=== PATIENT | female | born 1970 | race Caucasian/White ===

== ENCOUNTER 2019-03-19 08:52 | Emergency (ER) | payer MEDICAID ==
[~2019-03-19] VITALS: Ht 172.7 cm; Wt 68.0 kg
[~2019-03-19 08:52] MED LIST: ALBU8HFA IH; CLON-527 PO; CYCL-394 PO; FLUT16SP13 NAS; HYDR1TAB PO; IBUP-1984 PO; MIN5C PO; OLAN10TA19 PO; OMEP-84 PO; RISP1TAB13 PO; SERT25TA PO; ZOLP10TA5 PO
[2019-03-19 08:54] VITALS: BP 135/78
== END 2019-03-19 12:07 | disposition home or self-care (01) ==
LOC: ER 08:52
DX: F15.10 Other stimulant abuse, uncomplicated (principal); F10.10 Alcohol abuse, uncomplicated; F31.9 Bipolar disorder, unspecified; F17.200 Nicotine dependence, unspecified, uncomplicated; F12.90 Cannabis use, unspecified, uncomplicated; Z59.0 Homelessness; Z88.2 Allergy status to sulfonamides; Z79.899 Other long term (current) drug therapy; Z56.0 Unemployment, unspecified
CPT/HCPCS: 99281

== ENCOUNTER 2019-04-12 08:03 | Emergency (ER) | payer MEDICAID ==
[~2019-04-12] VITALS: Ht 172.7 cm; Wt 75.0 kg
[2019-04-12] MEDS ORDERED: normal saline 1000ML IV soln IVB ONE (08:15)
[2019-04-12] MEDS ORDERED: ondansetron/PF 4mg/2ml inj IV ONE (08:15)
[2019-04-12 08:31] LABS: BASOPHILS % (AUTO) 0.6 % (0-1); EOSINOPHILS # (AUTO) 0.1 X10'3 (0-0.9); EOSINOPHILS % (AUTO) 1.3 % (0-6); HEMATOCRIT 42.3 % (35.0-45.0); HEMOGLOBIN 14.2 g/dl (12.0-16.0); LYMPHOCYTES # (AUTO) 1.6 X10'3 (1.1-4.8); LYMPHOCYTES % (AUTO) 19.6 % (21-51); MEAN CORPUSCULAR HGB CONC 33.6 g/dL (33.0-36.5); MEAN CORPUSCULAR VOLUME 92.1 FL (78-98); MEAN PLATELET VOLUME 6.4 FL (7.4-10.4); MONOCYTES # (AUTO) 0.7 X10'3 (0-0.9); MONOCYTES % (AUTO) 8.3 % (2-12); NEUTROPHILS # (AUTO) 5.9 X10'3 (1.8-7.7); NEUTROPHILS % (AUTO) 70.2 % (42-75); PLATELET COUNT 458 X10'3 (140-440); RED CELL DISTRIBUTION WIDTH 15.3 % (11.5-14.5); WHITE BLOOD COUNT 8.4 X10'3 (4.5-11.0)
[2019-04-12 08:42] LABS: ALANINE AMINOTRANSFERASE 21 U/L (12-78); ALBUMIN 3.4 G/DL (3.4-5.0); ALBUMIN/GLOBULIN RATIO 0.9 (1.1-1.5); ALKALINE PHOSPHATASE 84 IU/L (46-116); ANION GAP 4 (8-16); ASPARTATE AMINO TRANSFERASE 15 U/L (10-37); BILIRUBIN,TOTAL 0.4 MG/DL (0.1-1.0); BLOOD UREA NITROGEN 10 MG/DL (7-18); BUN/CREATININE RATIO 17.2 (6.6-38.0); CALCIUM 8.7 MG/DL (8.5-10.1); CHLORIDE 103 MMOL/L (99-107); CREATININE 0.58 MG/DL (0.40-0.90); GLUCOSE 104 MG/DL (70-104); LIPASE 82 U/L (73-393); POTASSIUM 3.9 MMOL/L (3.5-5.1); SODIUM 135 MMOL/L (135-145); TOTAL CARBON DIOXIDE 27.7 MMOL/L (24-32); TOTAL PROTEIN 7.2 G/DL (6.4-8.2); eGFR > 90 ML/MIN
[2019-04-12 09:34] LABS: URINE HCG NEGATIVE (NEG)
[2019-04-12 09:49] LABS: CLARITY,URINE CLEAR (Clear); COLOR,URINE YELLOW (Yellow); GLUCOSE, URINE NEGATIVE (Neg); KETONES,URINE NEGATIVE (Neg); LEUKOCYTE ESTERASE ,URINE NEGATIVE (Neg); NITRITES, URINE NEGATIVE (Neg); OCCULT BLOOD,URINE NEGATIVE (Neg); PH,URINE 7.5 (4.8-8.0); PROTEIN,URINE NEGATIVE (Neg); UROBILINOGEN,URINE 0.2 E.U/dL (0.2-1.0)
[2019-04-12 09:50] LABS: UA COLLECTION TYPE CLN CATCH MIDSTREAM
[2019-04-12 10:13] VITALS: BP 116/76
== END 2019-04-12 10:13 | disposition home or self-care (01) ==
LOC: ER 08:04
DX: R10.11 Right upper quadrant pain (principal); F12.90 Cannabis use, unspecified, uncomplicated; F15.90 Other stimulant use, unspecified, uncomplicated; Z59.0 Homelessness; Z56.0 Unemployment, unspecified; Z88.2 Allergy status to sulfonamides; Z79.899 Other long term (current) drug therapy
CPT/HCPCS: 36415; 76700; 80053; 81003; 81025; 83690; 85025; 96374; 99284; J2405; J7030

== ENCOUNTER 2023-04-12 23:58 | Emergency (ER) | payer MEDICAID ==
[~2023-04-12] VITALS: Ht 170.2 cm; Wt 85.0 kg
[~2023-04-12 23:58] MED LIST changes: -ALBU8HFA IH; -CLON-527 PO; -CYCL-394 PO; -FLUT16SP13 NAS; -HYDR1TAB PO; -IBUP-1984 PO; -MIN5C PO; +NO HOME MEDS; -OLAN10TA19 PO; -OMEP-84 PO; -RISP1TAB13 PO; -SERT25TA PO; -ZOLP10TA5 PO
[2023-04-13 00:56] LABS: URINE HCG NEGATIVE (NEG)
[2023-04-13 01:05] LABS: ANION GAP 6 (8-16); BILIRUBIN,TOTAL 0.3 MG/DL (0.1-1.0); BLOOD UREA NITROGEN 12 MG/DL (7-18); BUN/CREATININE RATIO 18.8 (10.0-20.0); CALCIUM 9.4 MG/DL (8.5-10.1); CHLORIDE 103 MMOL/L (99-107); CREATININE 0.64 MG/DL (0.40-0.90); GLUCOSE 94 MG/DL (70-104); POTASSIUM 3.3 MMOL/L (3.5-5.1); SODIUM 138 MMOL/L (135-145); TOTAL PROTEIN 7.7 G/DL (6.4-8.2); eGFR > 90 ML/MIN
[2023-04-13 01:06] LABS: ALANINE AMINOTRANSFERASE 37 U/L (12-78); ALBUMIN/GLOBULIN RATIO 1.1 (1.1-1.5); ALKALINE PHOSPHATASE 107 IU/L (46-116); ASPARTATE AMINO TRANSFERASE 21 U/L (10-37); ETHANOL < 0.010 GM/DL (0.0-0.010)
[2023-04-13 01:08] LABS: BASOPHILS # (AUTO) 0.1 X10'3 (0-0.2); BASOPHILS % (AUTO) 0.7 % (0-1); EOSINOPHILS # (AUTO) 0.1 X10'3 (0-0.9); EOSINOPHILS % (AUTO) 1.2 % (0-6); HEMATOCRIT 40.1 % (35.0-45.0); HEMOGLOBIN 13.5 g/dl (12.0-16.0); LYMPHOCYTES # (AUTO) 2.3 X10'3 (1.1-4.8); LYMPHOCYTES % (AUTO) 31.9 % (21-51); MEAN CORPUSCULAR HEMOGLOBIN 32.3 PG (27.0-31.0); MEAN CORPUSCULAR HGB CONC 33.8 g/dL (33.0-36.5); MEAN CORPUSCULAR VOLUME 95.6 FL (78-98); MEAN PLATELET VOLUME 7.1 FL (7.4-10.4); MONOCYTES # (AUTO) 0.9 X10'3 (0-0.9); MONOCYTES % (AUTO) 11.6 % (2-12); NEUTROPHILS % (AUTO) 54.6 % (42-75); PLATELET COUNT 440 X10'3 (140-440); RED BLOOD COUNT 4.19 X10'6 (4.20-5.60); RED CELL DISTRIBUTION WIDTH 15.6 % (11.5-14.5); WHITE BLOOD COUNT 7.3 X10'3 (4.5-11.0)
[2023-04-13 01:29] LABS: URINE AMPHETAMINE SCREEN NEGATIVE (Neg); URINE BARBITUATE SCREEN NEGATIVE (Neg); URINE BENZODIAZEPINES SCREEN NEGATIVE (Neg); URINE CANNABINOID SCREEN POSITIVE (Neg); URINE COCAINE SCREEN NEGATIVE (Neg); URINE METHADONE SCREEN NEGATIVE (Neg); URINE OPIATE SCREEN NEGATIVE (Neg); URINE PHENCYCLIDINE SCREEN NEGATIVE (Neg)
[2023-04-13] MEDS ORDERED: Melatonin 3mg tablet PO SCH (01:35)
[2023-04-13] MEDS ORDERED: OLANZapine 5mg rapidly disint. tablet PO ONE (01:35)
[2023-04-13] MEDS ORDERED: ibuprofen 200mg tablet PO ONE (03:05)
--- NOTE | 2023-04-13 06:45 | NUR ---
ASSUMED CARE FOR THE PT ,TAKEN REPORT FROM NEGRO ZAZUETA.
--- NOTE | 2023-04-13 06:58 | NUR ---
pt sleeping in lft lateral position ,RR WNL ,will cont to monitor .
[2023-04-13 07:34] VITALS: BP 125/78
--- NOTE | 2023-04-13 08:15 | NUR ---
pt up in bed using restroom at this time ,will cont to monitor .
--- NOTE | 2023-04-13 08:20 | NUR ---
pt eating her breakfast .
--- NOTE | 2023-04-13 08:59 | NUR ---
pt laying on her rgt side ,no distress noted,RR WNL will cont to monitor.
--- NOTE | 2023-04-13 09:20 | NUR ---
PT SLEEPING IN SUPINE POSITION ,NO DISTRESS NOTED.WILL CONT TO MONITOR.RR WNL.
--- NOTE | 2023-04-13 11:55 | NUR ---
PT SLEEPING AT THIS TIME ,RR WNL ,WILL CONT TO MONITOR .
--- NOTE | 2023-04-13 12:37 | NUR ---
PT UP TO BR VOIDED X1, TOLERATED WELL. BACK TO ROOM EATING LUNCH WITH GOOD APPETITE.
--- NOTE | 2023-04-13 13:13 | NUR ---
pt resting in bed at this time ,appear sleeping ,RR WNL,will con to monitor .phone kept outside the room as pt want to talk to someone .will not disturb the pt ,will give phome when pt is awake.
--- NOTE | 2023-04-13 15:37 | NUR ---
RASHID FROM [facility][1] HERE EVALUATING PT.
== END 2023-04-13 16:30 | disposition home or self-care (01) ==
LOC: ER 23:59
DX: R45.851 Suicidal ideations (principal); F99 Mental disorder, not otherwise specified; G43.909 Migraine, unspecified, not intractable, without status migrainosus; G89.29 Other chronic pain; F12.90 Cannabis use, unspecified, uncomplicated; F19.90 Other psychoactive substance use, unspecified, uncomplicated; Z91.51 Personal history of suicidal behavior; Z72.89 Other problems related to lifestyle; Z59.00 Homelessness unspecified; Z56.0 Unemployment, unspecified
CPT/HCPCS: 36415; 80053; 80305; 80320; 81025; 85025; 99285

== ENCOUNTER 2023-04-16 07:35 | Emergency (ER) | payer MEDICAID ==
[~2023-04-16] VITALS: Ht 170.2 cm; Wt 84.2 kg
[2023-04-16 08:07] VITALS: BP 127/78
[2023-04-16 08:54] LABS: BASOPHILS % (AUTO) 0.4 % (0-1); EOSINOPHILS # (AUTO) 0.1 X10'3 (0-0.9); EOSINOPHILS % (AUTO) 0.8 % (0-6); HEMATOCRIT 41.5 % (35.0-45.0); LYMPHOCYTES # (AUTO) 1.6 X10'3 (1.1-4.8); LYMPHOCYTES % (AUTO) 17.2 % (21-51); MEAN CORPUSCULAR HGB CONC 33.8 g/dL (33.0-36.5); MEAN CORPUSCULAR VOLUME 94.8 FL (78-98); MEAN PLATELET VOLUME 6.7 FL (7.4-10.4); MONOCYTES # (AUTO) 1.3 X10'3 (0-0.9); MONOCYTES % (AUTO) 13.8 % (2-12); NEUTROPHILS # (AUTO) 6.2 X10'3 (1.8-7.7); NEUTROPHILS % (AUTO) 67.8 % (42-75); PLATELET COUNT 386 X10'3 (140-440); RED BLOOD COUNT 4.37 X10'6 (4.20-5.60); RED CELL DISTRIBUTION WIDTH 15.2 % (11.5-14.5); WHITE BLOOD COUNT 9.2 X10'3 (4.5-11.0)
[2023-04-16 08:56] LABS: CLARITY,URINE CLEAR (Clear); COLOR,URINE STRAW (Yellow); GLUCOSE, URINE NEGATIVE (Neg); KETONES,URINE NEGATIVE (Neg); LEUKOCYTE ESTERASE ,URINE NEGATIVE (Neg); NITRITES, URINE NEGATIVE (Neg); OCCULT BLOOD,URINE NEGATIVE (Neg); PROTEIN,URINE NEGATIVE (Neg); UROBILINOGEN,URINE 0.2 E.U/dL (0.2-1.0)
[2023-04-16 08:57] LABS: URINE HCG NEGATIVE (NEG)
[2023-04-16 08:58] LABS: UA COLLECTION TYPE CLN CATCH MIDSTREAM
[2023-04-16 09:08] LABS: ALANINE AMINOTRANSFERASE 30 U/L (12-78); ALBUMIN 3.6 G/DL (3.4-5.0); ALKALINE PHOSPHATASE 101 IU/L (46-116); ANION GAP 5 (8-16); ASPARTATE AMINO TRANSFERASE 14 U/L (10-37); BILIRUBIN,TOTAL 0.8 MG/DL (0.1-1.0); BLOOD UREA NITROGEN 8 MG/DL (7-18); BUN/CREATININE RATIO 13.1 (10.0-20.0); CALCIUM 8.9 MG/DL (8.5-10.1); CHLORIDE 103 MMOL/L (99-107); CREATININE 0.61 MG/DL (0.40-0.90); GLUCOSE 95 MG/DL (70-104); POTASSIUM 3.6 MMOL/L (3.5-5.1); SODIUM 137 MMOL/L (135-145); TOTAL CARBON DIOXIDE 28.8 MMOL/L (24-32); TOTAL PROTEIN 7.3 G/DL (6.4-8.2); eGFR > 90 ML/MIN
[2023-04-16 09:09] LABS: URINE AMPHETAMINE SCREEN POSITIVE (Neg); URINE BARBITUATE SCREEN NEGATIVE (Neg); URINE BENZODIAZEPINES SCREEN NEGATIVE (Neg); URINE CANNABINOID SCREEN POSITIVE (Neg); URINE COCAINE SCREEN NEGATIVE (Neg); URINE METHADONE SCREEN NEGATIVE (Neg); URINE OPIATE SCREEN NEGATIVE (Neg); URINE PHENCYCLIDINE SCREEN NEGATIVE (Neg)
[2023-04-16 09:30] LABS: ETHANOL < 0.010 GM/DL (0.0-0.010)
[2023-04-16] MEDS ORDERED: IBUP-1985 PO (09:52)
== END 2023-04-16 10:47 | disposition home or self-care (01) ==
LOC: ER 07:35
DX: F12.10 Cannabis abuse, uncomplicated (principal); F19.10 Other psychoactive substance abuse, uncomplicated; M79.661 Pain in right lower leg; G43.909 Migraine, unspecified, not intractable, without status migrainosus; G89.29 Other chronic pain; F41.9 Anxiety disorder, unspecified; F31.9 Bipolar disorder, unspecified; F15.90 Other stimulant use, unspecified, uncomplicated; Z59.00 Homelessness unspecified; Z56.0 Unemployment, unspecified; Z88.2 Allergy status to sulfonamides; Z79.899 Other long term (current) drug therapy
CPT/HCPCS: 36415; 80053; 80305; 80320; 81003; 81025; 84443; 85025; 99283

== ENCOUNTER 2023-05-07 08:49 | Emergency (ER) | payer MEDICAID ==
[~2023-05-07] VITALS: Ht 175.3 cm; Wt 77.7 kg
[~2023-05-07 08:49] MED LIST changes: +IBUP-1985 PO
[2023-05-07] MEDS ORDERED: GABA300C PO (10:50)
[2023-05-07] MEDS ORDERED: ESCI20TA PO (10:50)
[2023-05-07] MEDS ORDERED: OLAN10TA3 PO (10:50)
[2023-05-07 11:12] VITALS: BP 149/87
== END 2023-05-07 11:13 | disposition home or self-care (01) ==
LOC: ER 08:50
DX: F41.9 Anxiety disorder, unspecified (principal); M25.571 Pain in right ankle and joints of right foot; G62.9 Polyneuropathy, unspecified; G43.909 Migraine, unspecified, not intractable, without status migrainosus; G89.29 Other chronic pain; F31.9 Bipolar disorder, unspecified; F17.210 Nicotine dependence, cigarettes, uncomplicated; F12.90 Cannabis use, unspecified, uncomplicated; Z56.0 Unemployment, unspecified; Z59.00 Homelessness unspecified; Z72.89 Other problems related to lifestyle; Z88.2 Allergy status to sulfonamides; Z79.899 Other long term (current) drug therapy
CPT/HCPCS: 99283

== ENCOUNTER 2023-05-27 13:57 | Emergency (ER) | payer MEDICAID ==
[~2023-05-27] VITALS: Ht 172.1 cm; Wt 81.8 kg
[~2023-05-27 13:57] MED LIST changes: +ESCI20TA PO; +GABA300C PO; +OLAN10TA3 PO
[2023-05-27 14:20] VITALS: BP 128/60
--- NOTE | 2023-05-27 14:25 | NUR ---
PADMA RAIL TRANSIT OPERATOR UPDATED ON PATIENTS STATEMENTS.
--- NOTE | 2023-05-27 14:31 | NUR ---
PATIENT WAS NOT IN LOBBY WHEN IT WAS HER TIME TO BE ROOMED
== END 2023-05-27 15:17 | disposition left against medical advice (07) ==
LOC: ER 13:58
DX: R22.43 Localized swelling, mass and lump, lower limb, bilateral (principal); Z53.21 Procedure and treatment not carried out due to patient leaving prior to being seen by health care provider
CPT/HCPCS: 99281

== ENCOUNTER 2023-06-01 21:40 | Emergency (ER) | payer MEDICAID ==
[~2023-06-01] VITALS: Ht 170.2 cm; Wt 82.0 kg
[2023-06-01 21:45] VITALS: BP 120/83
[2023-06-01] MEDS ORDERED: FURO-150 PO (22:45)
[2023-06-01] MEDS ORDERED: ibuprofen tablet 400 MG TABLET PO ONE (22:50)
--- NOTE | 2023-06-01 22:57 | NUR ---
PT NOT IN LOBBY
== END 2023-06-01 23:24 | disposition home or self-care (01) ==
LOC: ER 21:43
DX: Z76.0 Encounter for issue of repeat prescription (principal); M25.579 Pain in unspecified ankle and joints of unspecified foot; M25.473 Effusion, unspecified ankle; G43.909 Migraine, unspecified, not intractable, without status migrainosus; F31.9 Bipolar disorder, unspecified; F12.90 Cannabis use, unspecified, uncomplicated; F15.90 Other stimulant use, unspecified, uncomplicated; Z88.2 Allergy status to sulfonamides
CPT/HCPCS: 99282

== ENCOUNTER 2023-06-14 21:48 | Emergency (ER) | payer MEDICAID ==
[~2023-06-14 21:48] MED LIST changes: +FURO-150 PO
[2023-06-15] MEDS ORDERED: SUMA25TA35 PO (03:09)
[2023-06-15] MEDS ORDERED: FURO-150 PO (03:09)
[2023-06-15] MEDS ORDERED: BACL-11 PO (03:09)
== END 2023-06-14 22:39 | disposition left against medical advice (07) ==
LOC: ER 21:49
DX: M79.89 Other specified soft tissue disorders (principal); Z53.21 Procedure and treatment not carried out due to patient leaving prior to being seen by health care provider

== ENCOUNTER 2023-06-15 00:01 | Emergency (ER) | payer MEDICAID ==
[~2023-06-15] VITALS: Ht 172.1 cm; Wt 75.2 kg
[2023-06-15 00:22] VITALS: BP 105/73; PULSE 103; RESP 18; O2SAT 98
[2023-06-15] MEDS ORDERED: cyclobenzaprine 10mg tablet PO ONE (02:45)
[2023-06-15] MEDS ORDERED: furosemide 20MG tablet PO ONE (02:45)
[2023-06-15] MEDS ORDERED: ibuprofen tablet 400 MG TABLET PO ONE (02:45)
[2023-06-15] MEDS ORDERED: SUMAtriptan 25 MG tablet PO ONE (02:45)
[2023-06-15] MEDS ORDERED: ketorolac trometh inj. 60 MG/2 ML VIAL IM ONE (03:00)
[2023-06-15] MEDS ORDERED: SUMA25TA35 PO (03:09)
[2023-06-15] MEDS ORDERED: BACL-11 PO (03:09)
[2023-06-15] MEDS ORDERED: FURO-150 PO (03:09)
[2023-06-15 03:54] VITALS: TEMP 99
== END 2023-06-15 03:59 | disposition home or self-care (01) ==
LOC: ER 00:02
DX: R60.9 Edema, unspecified (principal); G43.909 Migraine, unspecified, not intractable, without status migrainosus; M54.9 Dorsalgia, unspecified; G89.29 Other chronic pain; F17.200 Nicotine dependence, unspecified, uncomplicated; Z76.0 Encounter for issue of repeat prescription; Z59.00 Homelessness unspecified; Z56.0 Unemployment, unspecified; Z88.2 Allergy status to sulfonamides; Z79.899 Other long term (current) drug therapy
CPT/HCPCS: 96372; 99284; J1885

== ENCOUNTER 2023-06-16 01:06 | Emergency (ER) | payer MEDICAID ==
[~2023-06-16] VITALS: Ht 170.2 cm; Wt 75.0 kg
[~2023-06-16 01:06] MED LIST changes: +BACL-11 PO; +SUMA25TA35 PO
[2023-06-16 02:58] VITALS: BP 112/83; PULSE 87; RESP 18; TEMP 98.3; O2SAT 99
[2023-06-16 03:30] LABS: URINE HCG NEGATIVE (NEG)
[2023-06-16 03:46] LABS: URINE AMPHETAMINE SCREEN POSITIVE (Neg); URINE BARBITUATE SCREEN NEGATIVE (Neg); URINE BENZODIAZEPINES SCREEN NEGATIVE (Neg); URINE CANNABINOID SCREEN NEGATIVE (Neg); URINE COCAINE SCREEN NEGATIVE (Neg); URINE METHADONE SCREEN NEGATIVE (Neg); URINE OPIATE SCREEN NEGATIVE (Neg); URINE PHENCYCLIDINE SCREEN NEGATIVE (Neg)
[2023-06-16 05:35] LABS: ALANINE AMINOTRANSFERASE 29 U/L (12-78); ALKALINE PHOSPHATASE 113 IU/L (46-116); ANION GAP 9 (8-16); ASPARTATE AMINO TRANSFERASE 17 U/L (10-37); BILIRUBIN,TOTAL 0.4 MG/DL (0.1-1.0); BLOOD UREA NITROGEN 13 MG/DL (7-18); BUN/CREATININE RATIO 19.1 (10.0-20.0); CHLORIDE 105 MMOL/L (99-107); CREATININE 0.68 MG/DL (0.40-0.90); GLUCOSE 85 MG/DL (70-104); POTASSIUM 3.9 MMOL/L (3.5-5.1); SODIUM 140 MMOL/L (135-145); TOTAL CARBON DIOXIDE 26.3 MMOL/L (24-32); eGFR > 90 ML/MIN
[2023-06-16 05:46] LABS: ETHANOL < 0.010 GM/DL (0.0-0.010)
[2023-06-16 05:47] LABS: MEAN PLATELET VOLUME 7.6 FL (7.4-10.4); MONOCYTES # (AUTO) 0.9 X10'3 (0-0.9)
[2023-06-16 05:48] LABS: CALCIUM 9.4 MG/DL (8.5-10.1)
[2023-06-16 05:49] LABS: BASOPHILS # (AUTO) 0.1 X10'3 (0-0.2); BASOPHILS % (AUTO) 0.8 % (0-1); EOSINOPHILS # (AUTO) 0.1 X10'3 (0-0.9); EOSINOPHILS % (AUTO) 1.7 % (0-6); HEMATOCRIT 40.5 % (35.0-45.0); HEMOGLOBIN 13.4 g/dl (12.0-16.0); LYMPHOCYTES # (AUTO) 2.2 X10'3 (1.1-4.8); LYMPHOCYTES % (AUTO) 29.9 % (21-51); MEAN CORPUSCULAR HEMOGLOBIN 31.1 PG (27.0-31.0); MEAN CORPUSCULAR HGB CONC 33.1 g/dL (33.0-36.5); NEUTROPHILS % (AUTO) 55.6 % (42-75); PLATELET COUNT 385 X10'3 (140-440); RED BLOOD COUNT 4.31 X10'6 (4.20-5.60); RED CELL DISTRIBUTION WIDTH 15.2 % (11.5-14.5); WHITE BLOOD COUNT 7.2 X10'3 (4.5-11.0)
[2023-06-17] MEDS ORDERED: DOXY-1 PO ×2 (02:09)
[2023-06-17] MEDS ORDERED: FURO-150 PO (02:27)
[2023-06-17] MEDS ORDERED: BACL-11 PO (02:27)
[2023-06-17] MEDS ORDERED: IBUP-1985 PO (02:27)
[2023-06-17] MEDS ORDERED: SUMA25TA35 PO (02:27)
== END 2023-06-16 07:16 | disposition left against medical advice (07) ==
LOC: ER 01:06
DX: Z13.30 Encounter for screening examination for mental health and behavioral disorders, unspecified (principal); Z53.21 Procedure and treatment not carried out due to patient leaving prior to being seen by health care provider
CPT/HCPCS: 36415; 80053; 80305; 80320; 81025; 85025; 87811; 99281

== ENCOUNTER 2023-06-17 00:11 | Emergency (ER) | payer MEDICAID ==
[~2023-06-17] VITALS: Ht 170.2 cm; Wt 82.4 kg
[2023-06-17 01:14] VITALS: BP 126/75; TEMP 97.4
[2023-06-17] MEDS ORDERED: DOXY-1 PO ×2 (02:09)
[2023-06-17] MEDS ORDERED: FURO-150 PO (02:27)
[2023-06-17] MEDS ORDERED: SUMA25TA35 PO (02:27)
[2023-06-17] MEDS ORDERED: BACL-11 PO (02:27)
[2023-06-17] MEDS ORDERED: IBUP-1985 PO (02:27)
[2023-06-17 02:40] VITALS: PULSE 85; RESP 16; O2SAT 98
== END 2023-06-17 02:41 | disposition home or self-care (01) ==
LOC: ER 00:12
DX: F19.10 Other psychoactive substance abuse, uncomplicated (principal); G43.909 Migraine, unspecified, not intractable, without status migrainosus; F31.9 Bipolar disorder, unspecified; F12.90 Cannabis use, unspecified, uncomplicated; F15.90 Other stimulant use, unspecified, uncomplicated; Z76.0 Encounter for issue of repeat prescription; Z88.2 Allergy status to sulfonamides; Z79.1 Long term (current) use of non-steroidal anti-inflammatories (NSAID); Z79.82 Long term (current) use of aspirin; Z79.899 Other long term (current) drug therapy
CPT/HCPCS: 99283

== ENCOUNTER 2023-06-22 00:53 | Emergency (ER) | payer MEDICAID ==
[~2023-06-22] VITALS: Ht 172.1 cm; Wt 74.8 kg
[2023-06-22 01:02] VITALS: BP 136/86; PULSE 90; RESP 18; TEMP 97.2; O2SAT 98
[2023-06-22] MEDS ORDERED: HYDROcodone/acetaminophen 10/325mg tab PO STA (05:07)
== END 2023-06-22 05:19 | disposition home or self-care (01) ==
LOC: ER 00:54
DX: S92.331A Displaced fracture of third metatarsal bone, right foot, initial encounter for closed fracture (principal); G43.909 Migraine, unspecified, not intractable, without status migrainosus; G89.29 Other chronic pain; F41.9 Anxiety disorder, unspecified; F31.9 Bipolar disorder, unspecified; F12.90 Cannabis use, unspecified, uncomplicated; F15.90 Other stimulant use, unspecified, uncomplicated; Z59.00 Homelessness unspecified; Z56.0 Unemployment, unspecified; Z88.0 Allergy status to penicillin; Z79.899 Other long term (current) drug therapy; X58.XXXA Exposure to other specified factors, initial encounter; Y93.89 Activity, other specified; Y92.89 Other specified places as the place of occurrence of the external cause; Y99.8 Other external cause status
CPT/HCPCS: 73660; 99283

== ENCOUNTER 2023-07-30 13:49 | Emergency (ER) | payer MEDICAID ==
[~2023-07-30] VITALS: Ht 170.2 cm; Wt 75.0 kg
[2023-07-30 13:51] VITALS: BP 141/59; PULSE 80; RESP 18; TEMP 98; O2SAT 99
== END 2023-07-30 23:53 | disposition home or self-care (01) ==
LOC: ER 13:49
DX: M79.671 Pain in right foot (principal); G43.909 Migraine, unspecified, not intractable, without status migrainosus; F31.9 Bipolar disorder, unspecified; F12.90 Cannabis use, unspecified, uncomplicated; F15.90 Other stimulant use, unspecified, uncomplicated; Z88.2 Allergy status to sulfonamides; Z79.1 Long term (current) use of non-steroidal anti-inflammatories (NSAID); Z79.899 Other long term (current) drug therapy
CPT/HCPCS: 99282; L4360

== ENCOUNTER 2023-09-12 12:55 | Emergency (ER) | payer MEDICAID ==
[~2023-09-12] VITALS: Ht 172.7 cm; Wt 79.5 kg
[2023-09-12 13:13] VITALS: BP 121/78; PULSE 90; O2SAT 98
[2023-09-12 14:05] LABS: URINE HCG NEGATIVE (NEG)
[2023-09-12 14:13] LABS: URINE AMPHETAMINE SCREEN NEGATIVE (Neg); URINE BARBITUATE SCREEN NEGATIVE (Neg); URINE BENZODIAZEPINES SCREEN NEGATIVE (Neg); URINE CANNABINOID SCREEN NEGATIVE (Neg); URINE COCAINE SCREEN NEGATIVE (Neg); URINE OPIATE SCREEN NEGATIVE (Neg); URINE PHENCYCLIDINE SCREEN NEGATIVE (Neg)
[2023-09-12 14:20] LABS: BASOPHILS # (AUTO) 0.1 X10'3 (0-0.2); BASOPHILS % (AUTO) 1.2 % (0-1); EOSINOPHILS # (AUTO) 0.1 X10'3 (0-0.9); EOSINOPHILS % (AUTO) 1.3 % (0-6); HEMATOCRIT 38.8 % (35.0-45.0); HEMOGLOBIN 12.9 g/dl (12.0-16.0); LYMPHOCYTES # (AUTO) 2.1 X10'3 (1.1-4.8); LYMPHOCYTES % (AUTO) 28.8 % (21-51); MEAN CORPUSCULAR HEMOGLOBIN 31.8 PG (27.0-31.0); MEAN CORPUSCULAR HGB CONC 33.2 g/dL (33.0-36.5); MEAN CORPUSCULAR VOLUME 95.6 FL (78-98); MEAN PLATELET VOLUME 7.2 FL (7.4-10.4); MONOCYTES # (AUTO) 0.6 X10'3 (0-0.9); MONOCYTES % (AUTO) 8.3 % (2-12); NEUTROPHILS # (AUTO) 4.4 X10'3 (1.8-7.7); NEUTROPHILS % (AUTO) 60.4 % (42-75); PLATELET COUNT 445 X10'3 (140-440); RED BLOOD COUNT 4.06 X10'6 (4.20-5.60); RED CELL DISTRIBUTION WIDTH 15.8 % (11.5-14.5); WHITE BLOOD COUNT 7.2 X10'3 (4.5-11.0)
[2023-09-12 14:29] LABS: ALANINE AMINOTRANSFERASE 44 U/L (12-78); ALBUMIN 3.6 G/DL (3.4-5.0); ALBUMIN/GLOBULIN RATIO 0.9 (1.1-1.5); ALKALINE PHOSPHATASE 119 IU/L (46-116); ANION GAP 8 (8-16); ASPARTATE AMINO TRANSFERASE 26 U/L (10-37); BILIRUBIN,TOTAL 0.3 MG/DL (0.1-1.0); BLOOD UREA NITROGEN 10 MG/DL (7-18); BUN/CREATININE RATIO 19.2 (10.0-20.0); CHLORIDE 100 MMOL/L (99-107); CREATININE 0.52 MG/DL (0.40-0.90); GLUCOSE 114 MG/DL (70-104); POTASSIUM 3.6 MMOL/L (3.5-5.1); SODIUM 136 MMOL/L (135-145); TOTAL CARBON DIOXIDE 27.9 MMOL/L (24-32); TOTAL PROTEIN 7.6 G/DL (6.4-8.2); eCRCL 129 ML/MIN; eGFR > 90 ML/MIN
[2023-09-12 14:42] LABS: ETHANOL < 10 MG/DL (<10)
[2023-09-12] MEDS ORDERED: SUMAtriptan 25 MG tablet PO ONE (14:55)
[2023-09-12] MEDS ORDERED: LORazepam 1 MG tablet PO ONE (14:55)
[2023-09-12 15:26] LABS: BILIRUBIN,URINE NEGATIVE (Neg); CLARITY,URINE SLIGHTLY CLOUDY (Clear); COLOR,URINE YELLOW (Yellow); GLUCOSE, URINE NEGATIVE (Neg); KETONES,URINE NEGATIVE (Neg); LEUKOCYTE ESTERASE ,URINE NEGATIVE (Neg); NITRITES, URINE NEGATIVE (Neg); OCCULT BLOOD,URINE NEGATIVE (Neg); PROTEIN,URINE NEGATIVE (Neg); UROBILINOGEN,URINE 0.2 E.U/dL (0.2-1.0)
[2023-09-12 15:27] LABS: UA COLLECTION TYPE CLN CATCH MIDSTREAM
[2023-09-12 15:32] LABS: BACTERIA,URINE FEW /HPF (Neg); RBC,URINE 0-2 /HPF (0-2); SQUAMOUS EPITHELIAL CELL,UR FEW /LPF (FEW); WBC,URINE 0-4 /HPF (0-4)
--- NOTE | 2023-09-12 15:35 | NUR ---
TECH FAXED PT PACKET TO [facility]
[2023-09-12 17:00] VITALS: RESP 18
--- NOTE | 2023-09-12 17:20 | NUR ---
Pt gave me permission to talk to any worker at [facility] in regards to care today, called to let them know she is being taken off the 1798. per Pascale Piper here. and will call [facility] for a ride after discharge. PRIYANK Melissa called first in regards to her care and at that time i told her she was on a 24 hr hold. PRIYANK
[2023-09-12 17:58] VITALS: TEMP 97.9
--- NOTE | 2023-09-12 18:03 | NUR ---
1700 I have reviewed and agree with all interventions, assessments performed and documented by Evelyn Downing.
== END 2023-09-12 20:11 | disposition home or self-care (01) ==
LOC: ER 12:55
DX: R45.851 Suicidal ideations (principal); Z20.822 Contact with and (suspected) exposure to COVID-19; F60.3 Borderline personality disorder; M79.604 Pain in right leg; G43.909 Migraine, unspecified, not intractable, without status migrainosus; F31.9 Bipolar disorder, unspecified; F12.10 Cannabis abuse, uncomplicated; F15.10 Other stimulant abuse, uncomplicated; Z88.2 Allergy status to sulfonamides; Z79.899 Other long term (current) drug therapy
CPT/HCPCS: 36415; 73630; 80053; 80305; 80320; 81001; 81025; 85025; 87811; 99285

== ENCOUNTER 2023-09-18 13:02 | Emergency (ER) | payer MEDICAID ==
[~2023-09-18] VITALS: Ht 170.2 cm; Wt 85.2 kg
[2023-09-18 15:45] LABS: URINE HCG NEGATIVE (NEG)
[2023-09-18 15:47] LABS: BILIRUBIN,URINE NEGATIVE (Neg); CLARITY,URINE CLOUDY (Clear); COLOR,URINE YELLOW (Yellow); GLUCOSE, URINE NEGATIVE (Neg); KETONES,URINE NEGATIVE (Neg); LEUKOCYTE ESTERASE ,URINE NEGATIVE (Neg); NITRITES, URINE NEGATIVE (Neg); OCCULT BLOOD,URINE LARGE (Neg); PH,URINE 6.5 (4.8-8.0); PROTEIN,URINE NEGATIVE (Neg); UROBILINOGEN,URINE 0.2 E.U/dL (0.2-1.0)
[2023-09-18 16:00] LABS: UA COLLECTION TYPE NON-SPECIFIED
[2023-09-18 16:01] LABS: BACTERIA,URINE 2+ /HPF (Neg); RBC,URINE 0-2 /HPF (0-2); SQUAMOUS EPITHELIAL CELL,UR MODERATE /LPF (FEW); WBC,URINE 0-4 /HPF (0-4)
[2023-09-18 16:06] LABS: URINE AMPHETAMINE SCREEN NEGATIVE (Neg); URINE BARBITUATE SCREEN NEGATIVE (Neg); URINE BENZODIAZEPINES SCREEN NEGATIVE (Neg); URINE CANNABINOID SCREEN POSITIVE (Neg); URINE COCAINE SCREEN NEGATIVE (Neg); URINE METHADONE SCREEN NEGATIVE (Neg); URINE OPIATE SCREEN NEGATIVE (Neg); URINE PHENCYCLIDINE SCREEN NEGATIVE (Neg)
[2023-09-18] MEDS ORDERED: ketorolac trometh inj. 60 MG/2 ML VIAL IM ONE (16:55)
[2023-09-18] MEDS ORDERED: diphenhydrAMINE 25mg capsule PO ONE (16:55)
[2023-09-18] MEDS ORDERED: metoclopramide 10mg tablet PO ONE (16:55)
[2023-09-18 17:10] LABS: BASOPHILS # (AUTO) 0.1 X10'3 (0-0.2); BASOPHILS % (AUTO) 0.9 % (0-1); EOSINOPHILS # (AUTO) 0.2 X10'3 (0-0.9); EOSINOPHILS % (AUTO) 2.6 % (0-6); HEMATOCRIT 35.5 % (35.0-45.0); LYMPHOCYTES # (AUTO) 2.7 X10'3 (1.1-4.8); LYMPHOCYTES % (AUTO) 38.3 % (21-51); MEAN CORPUSCULAR HEMOGLOBIN 32.6 PG (27.0-31.0); MEAN CORPUSCULAR HGB CONC 33.8 g/dL (33.0-36.5); MEAN CORPUSCULAR VOLUME 96.4 FL (78-98); MEAN PLATELET VOLUME 6.8 FL (7.4-10.4); MONOCYTES # (AUTO) 0.6 X10'3 (0-0.9); MONOCYTES % (AUTO) 8.6 % (2-12); NEUTROPHILS # (AUTO) 3.5 X10'3 (1.8-7.7); NEUTROPHILS % (AUTO) 49.6 % (42-75); PLATELET COUNT 431 X10'3 (140-440); RED BLOOD COUNT 3.68 X10'6 (4.20-5.60); RED CELL DISTRIBUTION WIDTH 15.3 % (11.5-14.5); WHITE BLOOD COUNT 7.1 X10'3 (4.5-11.0)
[2023-09-18 17:20] LABS: ALANINE AMINOTRANSFERASE 26 U/L (12-78); ALBUMIN 3.3 G/DL (3.4-5.0); ALKALINE PHOSPHATASE 115 IU/L (46-116); ANION GAP 9 (8-16); ASPARTATE AMINO TRANSFERASE 14 U/L (10-37); BILIRUBIN,TOTAL 0.2 MG/DL (0.1-1.0); BLOOD UREA NITROGEN 20 MG/DL (7-18); BUN/CREATININE RATIO 24.4 (10.0-20.0); CALCIUM 8.4 MG/DL (8.5-10.1); CHLORIDE 106 MMOL/L (99-107); CREATININE 0.82 MG/DL (0.40-0.90); GLUCOSE 113 MG/DL (70-104); LIPASE 46 U/L (16-77); POTASSIUM 3.6 MMOL/L (3.5-5.1); SODIUM 143 MMOL/L (135-145); TOTAL PROTEIN 6.6 G/DL (6.4-8.2); eCRCL 79 ML/MIN; eGFR 73 ML/MIN
[2023-09-18 18:28] VITALS: BP 132/84; PULSE 97; RESP 22; TEMP 97.8; O2SAT 99
--- NOTE | 2023-09-18 20:51 | NUR ---
GRAZING EXAMINER assessment reviewed.
== END 2023-09-18 18:30 | disposition home or self-care (01) ==
LOC: ER 13:03
DX: G43.909 Migraine, unspecified, not intractable, without status migrainosus (principal); Z20.822 Contact with and (suspected) exposure to COVID-19; R10.13 Epigastric pain; G89.29 Other chronic pain; F41.9 Anxiety disorder, unspecified; F12.90 Cannabis use, unspecified, uncomplicated; F15.90 Other stimulant use, unspecified, uncomplicated; Z56.0 Unemployment, unspecified; Z59.00 Homelessness unspecified; Z88.1 Allergy status to other antibiotic agents; Z79.899 Other long term (current) drug therapy
CPT/HCPCS: 36415; 80053; 80305; 81001; 81025; 83690; 85025; 87811; 96372; 99283; J1885; Q0163